=== PATIENT | female | born 1990 | race Caucasian/White ===

== ENCOUNTER 2024-09-30 04:33 | Emergency (ER) | payer OTHER ==
[2024-09-30 04:47] VITALS: TEMP 97.1
[2024-09-30 05:18] LABS: Hematocrit 43.1 % (34.1-44.9); Hemoglobin 14.5 g/dL (11.2-15.7); Mean Cell Volume 79.5 fL (79.4-94.8); Mean Corpuscular Hemoglobin 26.8 pg (25.6-32.2); Mean Corpuscular Hgb Concent. 33.6 g/dL (32.2-35.5); Mean Platelet Volume 10.2 fL (9.4-12.3); Platelet Count 280 x10^3/uL (182-369); Red Blood Count 5.42 x10^6/uL (3.93-5.22); White Blood Count 18.7 x10^3/uL (3.98-10.04)
[2024-09-30 05:29] LABS: ALBUMIN 4.6 g/dL (3.5-5.0); BILIRUBIN,TOTAL 0.8 mg/dL (0.2-1.3); Calcium 9.2 mg/dL (8.4-10.2); Creatinine 1 0.74 mg/dL (0.52-1.04); EST GLOMERULAR FILTRATION RATE 107.5 ML/MIN; Potassium 3.4 mmol/L (3.5-5.1); Total Protein 8.2 g/dL (6.3-8.2)
[2024-09-30 05:32] LABS: Appearance Clear (Clear); Bilirubin Small (Negative); Blood Trace (Negative); Epithelial Cells None Seen /HPF (None Seen); Glucose, Urine Negative (Negative); Hyaline Casts NONE SEEN /LPF (0-2); Ketones Negative (Negative); Leukocyte Esterase Trace (Negative); Nitrite Positive (Negative); Ph 6.5 (4.6-8.0); Protein,Urine Dip Trace (Negative); RBC 0-2 /HPF (0-5); Specific Gravity 1.015 (1.005-1.030); WBC 0-2 /HPF (0-5)
[2024-09-30 05:33] LABS: Bacteria Rare /HPF (None Seen)
[2024-09-30] MEDS ORDERED: Zofran 4 MG/2 ML VIAL ONE (06:12)
[2024-09-30] MEDS ORDERED: TORAdol 30 mg Injection ONE (06:12)
--- NOTE | 2024-09-30 06:13 | ERPHSYRPT ---
- History of Present Illness Source: patient Exam Limitations: no limitations Patient Subjective Stated Complaint: c/o left sided abdominal and flank pain Triage Nursing Assessment: patient came into ED with 7/10 intermittent, left- side flank and abdominal pain. patient was working and felt like she was starting to get an UTI, around 0300 the pain got worse. patient states she has been drinking plenty of water and around 0100 the frequency of urination slowed down. patient was brought in by wheelchair, hypertensive, slight tachycardic, afebrile, patient states she vomitted twice, bowel sounds present in all 4 quads, patient doesn't appear to be in any distress at this time. Physician History: Patient has left flank pain. It started yesterday it was kind of intermittent and it went away. It came back again today. She has not had any fever or chills. She has had some nausea no vomiting. Pain is in the left flank. It radiates to the left groin.She has not had kidney stones in the past. She does not have any dysuria. Quality: aching Allergies/Adverse Reactions: morphine Allergy (Verified 09/30/24 04:48) Itching metoclopramide [From Reglan] Adverse Reaction (Verified 09/30/24 04:48) Rash Penicillins Adverse Reaction (Verified 09/30/24 04:48) Anaphylactic Reaction Home Medications: Rimegepant Sulfate [Nurtec Odt] 75 mg PO DAILY 09/30/24 [History] Topiramate 100 mg [Topamax 100 MG] 100 mg PO DAILY 09/30/24 [History] Hx Tetanus, Diphtheria Vaccination/Date Given: Yes Hx Influenza Vaccination/Date Given: Yes Hx Pneumococcal Vaccination/Date Given: No Travel Risk - International Travel Have you traveled outside of the country in past 3 weeks: No - Emerging Infectious Disease Are you exhibiting symptoms associated with any current EIDs: Yes Symptoms: Abdominal Pain - Review of Systems Constitutional: No Symptoms Eyes: No Symptoms Respiratory: No Symptoms Cardiac: No Symptoms Abdominal/Gastrointestinal: No Symptoms - Past Medical History Pertinent Past Medical History: Yes Neurological History: Migraines GI Medical History: Irritable Bowel - Past Surgical History Past Surgical History: Yes Gastrointestinal: Appendectomy, Cholecystectomy Female Surgical History: Hysterectomy, Tubal Ligation Other Surgical History: complete hysterectomy, breast reduction - Female History Hx Last Menstrual Period: complete hysterectomy Hx Now: No - Social History Smoking Status: Never smoker Exposure to second hand smoke: No Drug Use: none - Social Determinants of Health Will the patient participate in the screening: Yes Do you worry about a steady place to live?: No Do you have any problems with any of the following?: No known problems In the past 12 months,have you had to go without utilities?: No Transportation Issues: No Has anyone in your support network made you feel unsafe?: No Have you or anyone in your house had to go without enough: No - Nursing Vital Signs Nursing Vital Signs: Initial Vital Signs Temperature 97.1 F 09/30/24 04:36 Pulse Rate 108 H 09/30/24 04:36 Respiratory Rate 22 09/30/24 04:36 Blood Pressure 163/130 09/30/24 04:36 O2 Sat by Pulse Oximetry 99 09/30/24 04:36 Pain Scale Pain Intensity 7 - Physical Exam General Appearance: no apparent distress Respiratory Exam: normal breath sounds, chest tenderness, lungs clear Cardiovascular Exam: regular rate/rhythm, normal heart sounds, normal peripheral pulses Gastrointestinal/Abdomen Exam: soft, normal bowel sounds, tenderness Neurologic Exam: alert, oriented x 3, cooperative, normal mood/affect SpO2: 96 Ordered Tests: Active Orders 24 hr Category Date Time Status IV Insertion STAT Care 09/30/24 05:03 Active ABDOMEN AND PELVIS W/0 CONTRAS [CT] Stat Exams 09/30/24 05:10 Completed CBC Stat Lab 09/30/24 05:05 Completed CMP Stat Lab 09/30/24 05:05 Completed CULTURE,URINE Stat Lab 09/30/24 05:08 Received UA W/RFX UR CULTURE Stat Lab 09/30/24 05:08 Completed Medication Summary Discontinued Medications Generic Name Dose Route Start Last Admin Trade Name Fernandoq PRN Reason Stop Dose Admin Ketorolac Tromethamine 30 mg 09/30/24 06:10 09/30/24 06:15 Ketorolac Tromethamine 30 Mg/Ml Inj IV 09/30/24 06:11 30 mg STAT ONE Administration Ketorolac Tromethamine Confirm 09/30/24 06:12 Ketorolac Tromethamine 30 Mg/Ml Inj Administered 09/30/24 06:13 Dose 30 mg .ROUTE .STK-MED ONE Ondansetron HCl 4 mg 09/30/24 06:10 09/30/24 06:15 Ondansetron Hcl 4 Mg/2 Ml Vial IV 09/30/24 06:11 4 mg STAT ONE Administration Ondansetron HCl Confirm 09/30/24 06:12 Ondansetron Hcl 4 Mg/2 Ml Vial Administered 09/30/24 06:13 Dose 4 mg .ROUTE .STK-MED ONE Lab/Rad Data: Laboratory Result Diagrams 09/30/24 05:05 09/30/24 05:05 Laboratory Results 09/30/24 09/30/24 09/30/24 Range/Units 05:08 05:05 05:05 WBC 18.7 H (3.98-10.04) x10^3/uL RBC 5.42 H (3.93-5.22) x10^6/uL Hgb 14.5 (11.2-15.7) g/dL Hct 43.1 (34.1-44.9) % MCV 79.5 (79.4-94.8) fL MCH 26.8 (25.6-32.2) pg MCHC 33.6 (32.2-35.5) g/dL RDW 13.0 (11.7-14.4) % Plt Count 280 (182-369) x10^3/uL MPV 10.2 (9.4-12.3) fL Sodium 137 (135-145) mmol/L Potassium 3.4 L (3.5-5.1) mmol/L Chloride 102 (98-107) mmol/L Carbon Dioxide 25 (22-30) mmol/L Anion Gap 14.0 (5-15) MEQ/L BUN 18 H (7-17) mg/dL Creatinine 0.74 (0.52-1.04) mg/dL Estimated GFR 107.5 ML/MIN Glucose 112 H (74-106) mg/dL Calcium 9.2 (8.4-10.2) mg/dL Total Bilirubin 0.80 (0.2-1.3) mg/dL AST 35 (14-36) U/L ALT 31 (0-35) U/L Alkaline Phosphatase 147 H (38-126) U/L Serum Total Protein 8.2 (6.3-8.2) g/dL Albumin 4.6 (3.5-5.0) g/dL Urine Color Dark Yellow A (Yellow) Urine Appearance Clear (Clear) Urine pH 6.5 (4.6-8.0) Ur Specific [place] 1.015 (1.005-1.030) Urine Protein Trace A (Negative) Urine Glucose (UA) Negative (Negative) mg/dL Urine Ketones Negative (Negative) Urine Blood Trace (Negative) Urine Nitrite Positive A (Negative) Urine Bilirubin Small A (Negative) Urine Urobilinogen 1.0 A (0.2) mg/dL Ur Leukocyte Esterase Trace A (Negative) U Hyaline Cast (Auto) NONE SEEN (0-2) /LPF Urine Microscopic RBC 0-2 (0-5) /HPF Urine Microscopic WBC 0-2 (0-5) /HPF Ur Epithelial Cells None Seen (None Seen) /HPF Urine Bacteria Rare A (None Seen) /HPF Urine Culture Reflexed YES (NO) - Progress Progress: improved, re-examined Progress Note: On the differential was UTI, pyelonephritis, kidney stone, diverticulitis, gastroenteritis, colitis, Patient was stable throughout stay.I thought she probably had a kidney stone. We got a CT and it did not show 1. I am wondering if it either was not picked up on the reading or if she is passed that but and anyway I still think she probably has a kidney stone. I am going to give her some Toradol and [place] and Zofran to go home with. She is going to return if symptoms worsen 09/30/24 06:54 Medical Desision Making - Diagnostic Testing Diagnostic test were ordered, analyzed, and reviewed by me: Yes Radiological Interpretation: Reviewed by me - Risk of complications Minimal Risk: Minimal risk of morbidity - Departure Departure Disposition: Home Clinical Impression: Left flank pain Condition: Stable Critical Care Time: No Instructions: Abdominal pain
[2024-09-30] MEDS: TORAdol 30 mg Injection IV ONE (06:15)
[2024-09-30] MEDS: Zofran 4 MG/2 ML VIAL IV ONE (06:15)
--- NOTE | 2024-09-30 06:37 | XRAY ---
CLINICAL HISTORY: abd pain COMPARISON: No prior studies available for comparison. TECHNIQUE: Non-contrast CT of the abdomen and pelvis was performed, with the following protocol: axial images, and reconstructed coronal and sagittal images. No intravenous contrast was administered. One of the following dose reduction techniques was utilized for this exam: Automated exposure control, adjustment of the mA and/or kV according to patient size, and use of iterative reconstruction. FINDINGS: Abdomen: Liver: Normal in size, shape, and density. No focal lesions, cysts, or masses were identified. Gallbladder and Biliary System: The gallbladder is post operative. No dilatation of bile duct. Pancreas: Pancreatic head, body, and tail are visualized and appear normal in size and density. No pancreatic masses or calcifications were noted. Spleen: Normal in size, shape, and density with few tiny calcific foci suggetsive of old healed lesions. No splenic lesions or masses were identified. Kidneys and Adrenal Glands: Both kidneys are normal in size, shape, and position. Cortical thickness is within normal limits. No renal calculi or hydronephrosis. Adrenal glands are unremarkable. Pelvis: Urinary Bladder: Normal in contour and wall thickness. No intraluminal lesions. Uterus: not seen likely post operative. Peritoneal and Retroperitoneal Structures: No free fluid or abnormal fluid collections were identified within the abdomen or pelvis. No lymphadenopathy was noted. Bowel: The visualized bowel loops are normal in caliber and appearance.Post appendectomy status. No evidence of bowel obstruction or wall thickening. Note is made of umbilical hernia with defect of 32mm and fat as content. Bones and Soft Tissues: Pelvic bones and soft tissues are unremarkable. No fractures or abnormal masses were identified. IMPRESSION: No evidence of acute intra-abdominal pathology. Note is made of uncomplicated umbilical hernia with defect of 32mm and fat as content. Electronically Signed by: Richi Atkinson MD. (09/30/2024 06:33:44 EST)
[2024-09-30 07:02] VITALS: BP 125/79; PULSE 88; RESP 21; O2SAT 95
== END 2024-09-30 07:09 | disposition home or self-care (01) ==
LOC: ED 04:33
DX: R10.9 Unspecified abdominal pain (principal); R11.0 Nausea; Z79.899 Other long term (current) drug therapy
CPT/HCPCS: 36415; 74176; 80053; 81001; 85027; 87086; 96374; 96375; 99284; J1885; J2405